=== PATIENT | female | born 1970 | race Caucasian/White ===

== ENCOUNTER 2022-12-01 11:41 | Outpatient (REF) | payer OTHER, SELFPAY ==
[2022-12-01 11:56] LABS: Appearance Urine Clear; Color Urine Dark Yellow; Glucose Urine UA Negative (Negative); Leukocyte Esterase Urine Small (1+) (Negative); Nitrite Urine Positive (Negative); PH 6.5 (5.0-9.0); UMIC TRIGGER UACC YES; Urine Blood Negative (Negative); Urine Ketones Negative (Negative); Urine Protein Negative (Neg-Trace)
[2022-12-01 12:10] LABS: Bacteria Urine None Seen (None Seen); Hyaline Casts Urine 0-2 /LPF (0-2); RBC Urine 0-2 /HPF (0-2); Squamous Epithelial Cell Urine 0-2 /HPF (0-2); UACC Culture Trigger YES; WBC Urine 0-5 /HPF (0-5)
== END 2022-12-01 11:42 | disposition home or self-care (01) ==
LOC: HO.LNP 11:41
PROVIDERS: Visit Provider Nurse Practitioner Family
DX: R30.0 Dysuria (principal)
CPT/HCPCS: 81001; 87086

== ENCOUNTER 2023-06-04 15:53 | Outpatient (AMB) | payer OTHER, SELFPAY ==
--- NOTE | 2023-06-04 16:50 | MHC.OFFWIV ---
Intake Vital Signs 06/04/23 16:53 Height 5 ft 8 in Weight 207 lb BMI 31.5 BP 132/90 H Blood Pressure Location Lt brachial Position Sitting Pulse 62 Pulse Source Pulse Oximeter Temp 98.4 F Temp Source Oral Pulse Oximetry (%) 99 Oxygen Delivery Method Room Air Intake Visit Reasons: EP Sore Throat [phone] Intake Note: pt says she has had a sore throat since SAT with no other sx and she says she feels hot Allergies No Known Allergies Allergy (Unverified 06/04/23 17:02) Medication List - Last Reconciled 06/04/23 by Aman Ling MD azithromycin take 500 mg today (day 1), then 250 mg for 4 days (days 2-5) PO bupropion HCl 300 mg PO DAILY gabapentin mg PO Do you need a note to return to daycare/school/sports/work: No HPI EP Sore Throat [phone] HPI Details Patient presents for a sick visit. Reporting symptoms of sinus congestion, sore throat and difficulty swallowing. Low-grade fever. No family member is sick. No recent travel. Patient reports symptoms of malaise and fatigue. Physical Exam Vital Signs: Last Vital Signs Temp 98.4 F 06/04/23 16:53 Pulse 62 06/04/23 16:53 BP 132/90 H 06/04/23 16:53 Pulse Ox 99 06/04/23 16:53 Oxygen Delivery Method Room Air 06/04/23 16:53 BMI result Body Mass Index 31.5 Const General: cooperative and healthy appearing Nutritional Appearance: well nourished Orientation/consciousness: patient oriented x3 Limitations: no limitations HEENT Head: Yes normal to inspection Eyes General: appearance normal, both eyes and all related structures Neck Neck: Yes normal visual inspection Chest Chest palpation & inspection: normal palpation of entire chest wall Resp Effort & Inspection: normal respiratory effort Neuro General: patient oriented x3 Assessment & Plan Assessment & Plan (1) Upper respiratory tract infection: Code(s): J06.9 - Acute upper respiratory infection, unspecified Plan: Antibiotics ordered. Increase fluid intake. Tylenol for aches and pains. If symptoms worsen, follow-up here for a recheck. Orders: Orders AMB Rapid Strep Screen Today Z13.9 - Encounter for screening, unspecified Medications: New azithromycin take 500 mg today (day 1), then 250 mg for 4 days (days 2-5) PO 6 tabs 0RF Coding Level of Care Code Est Pt Level 3 (31970) Diagnoses Upper respiratory tract infection J06.9
[2023-06-04 16:53] VITALS: BP 132/90; PULSE 62; TEMP 36.9; O2SAT 99; BMI 31.5
== END 2023-06-04 17:15 | disposition home or self-care (01) ==
PROVIDERS: PCP Physician Assistant Medical; Visit Provider Internal Medicine
DX: J06.9 Acute upper respiratory infection, unspecified (principal); Z13.9 Encounter for screening, unspecified
CPT/HCPCS: 87880; 99213

== ENCOUNTER 2023-09-25 08:05 | Outpatient (AMB) | payer OTHER, SELFPAY ==
--- NOTE | 2023-09-25 08:14 | AM.OFFWIN_ITS ---
Intake Vital Signs 09/25/23 08:15 Height 5 ft 8 in Weight 204 lb BMI 31.0 BP 112/72 Blood Pressure Location Rt brachial Position Sitting Pulse 77 Pulse Source Pulse Oximeter Temp 97.9 F Temp Source Temporal Artery Scan Pulse Oximetry (%) 97 Oxygen Delivery Method Room Air Intake Visit Reasons: EP ?UTI Intake Note: pt is here for c/o possible uti Patient Tobacco Use Status: Never used Tobacco Allergies No Known Allergies Allergy (Verified 09/25/23 08:15) Medication List - Last Reconciled 09/25/23 by Ana Shoemaker MD bupropion HCl 300 mg PO DAILY gabapentin mg PO Do you need a note to return to daycare/school/sports/work: Yes HPI EP ?UTI HPI Details Patient is a 53-year-old female came in today to be evaluated for possible bladder infection Patient says that she is having them recurrently, last time was 2 months ago, she is also seeing a urologist and has appointment in 2 weeks Patient has been having dysuria for the past 2 days which is getting worse With slight pelvic pressure No gross blood No back pain, no nausea no vomiting, no fever no chills I am treating her with Levaquin 500 once a day for 5 days Patient says that Macrobid does not work for her. We will send urine for culture. [facility] Social History Patient Tobacco Use Status: Never used Tobacco Review of Systems Const All systems reviewed & are unremarkable except as noted in HPI and below Physical Exam Vital Signs: Last Vital Signs Temp 97.9 F 09/25/23 08:15 Pulse 77 09/25/23 08:15 BP 112/72 09/25/23 08:15 Pulse Ox 97 09/25/23 08:15 Oxygen Delivery Method Room Air 09/25/23 08:15 BMI result Body Mass Index 31.0 Const General: no acute distress Orientation/consciousness: patient oriented x3 Eyes General: appearance normal, both eyes and all related structures Resp Effort & Inspection: normal respiratory effort and able to speak in complete sentences Auscultation: clear to auscultation bilaterally GI Other: Mild suprapubic pressure, no guarding no rebound General: Yes no CVA tenderness Back/Spine/Pelvis Back: no CVA tenderness Neuro General: patient oriented x3 Psych Mental Status: mental status grossly normal Results AMB Urinalysis, Automated UA Leukoctes 500 Jm/uL Last Edit by Dick Aguero CMA on 09/25/23 08:3 1 UA Nitrite Positive Last Edit by Dick Aguero CMA on 09/25/23 08:31 UA Urobilinogen 2 mg/dL Last Edit by Dick Aguero CMA on 09/25/23 08:3 1 UA Protein 30 mg/dL Last Edit by Dick Aguero CMA on 09/25/23 08:31 UA pH 5.5 Last Edit by Dick Aguero CMA on 09/25/23 08:31 UA Blood 200 Jorge/uL Last Edit by Dick Aguero CMA on 09/25/23 08:31 UA Specific [place] 1.030 Last Edit by Dick Aguero CMA on 09/25/23 08:31 UA Ketone Positive Last Edit by Dick Aguero CMA on 09/25/23 08:31 UA Bilirubin 2 mg/dL Last Edit by Dick Aguero CMA on 09/25/23 08:31 UA Glucose 0 mg/dL Last Edit by Dick Aguero CMA on 09/25/23 08:31 Assessment & Plan Assessment & Plan (1) Acute cystitis: Code(s): N30.00 - Acute cystitis without hematuria Qualifiers: Hematuria presence: with hematuria Qualified Code(s): N30.01 - Acute cystitis with hematuria Plan Patient is a 53-year-old female came in today to be evaluated for possible bladder infection Patient says that she is having them recurrently, last time was 2 months ago, she is also seeing a urologist and has appointment in 2 weeks Patient has been having dysuria for the past 2 days which is getting worse With slight pelvic pressure No gross blood No back pain, no nausea no vomiting, no fever no chills I am treating her with Levaquin 500 once a day for 5 days Patient says that Macrobid does not work for her. We will send urine for culture. Orders: Orders AMB Urinalysis Automated Today Z13.9 - Encounter for screening, unspecified Urine Culture Today N30.00 - Acute cystitis without hematuria Medications: New levofloxacin 500 mg PO DAILY 5 days 5 tabs 0RF Coding Level of Care Code Est Pt Level 3 (02179) Diagnoses Acute cystitis with hematuria N30.01 Hematuria presence: with hematuria
[2023-09-25 08:15] VITALS: BP 112/72; PULSE 77; TEMP 36.6; O2SAT 97; BMI 31.0
== END 2023-09-25 09:17 | disposition home or self-care (01) ==
PROVIDERS: PCP Physician Assistant Medical; Visit Provider Internal Medicine
DX: N30.01 Acute cystitis with hematuria (principal)
CPT/HCPCS: 81003; 99213

== ENCOUNTER 2023-09-25 14:22 | Outpatient (REF) | payer OTHER, SELFPAY | END 2023-09-25 14:23 | disposition home or self-care (01) | LOC: HO.LNP 14:22 | PROVIDERS: Visit Provider Internal Medicine | DX: N30.00 Acute cystitis without hematuria (principal) | CPT/HCPCS: 87086 ==

== ENCOUNTER 2024-01-28 12:20 | Outpatient (AMB) | payer OTHER, SELFPAY ==
[2024-01-28 12:33] VITALS: BP 112/72; PULSE 87; TEMP 36.2; O2SAT 98; BMI 28.9
--- NOTE | 2024-01-28 12:33 | MHC.OFFWIV ---
Intake Vital Signs 01/28/24 12:33 Height 5 ft 8 in Weight 190 lb BMI 28.9 BP 112/72 Blood Pressure Location Lt brachial Position Sitting Pulse 87 Pulse Source Pulse Oximeter Temp 97.2 F Temp Source Temporal Artery Scan Pulse Oximetry (%) 98 Oxygen Delivery Method Room Air Intake Visit Reasons: EP UTI Intake Note: pt is here today for UTI started yesterday Patient Tobacco Use Status: Never used Tobacco Allergies No Known Allergies Allergy (Verified 01/28/24 13:19) Medication List - Last Reconciled 01/28/24 by Aman Ling MD bupropion HCl XL 300 mg PO DAILY gabapentin mg PO Do you need a note to return to daycare/school/sports/work: No HPI EP UTI HPI Details Patient presents for a sick visit. Reports symptoms of increased frequency of urination, burning on urination and discomfort in the suprapubic area. Symptoms started in the past few days. No fevers or chills. No nausea or vomiting. PFSH Social History Patient Tobacco Use Status: Never used Tobacco Physical Exam Vital Signs: Last Vital Signs Temp 97.2 F 01/28/24 12:33 Pulse 87 01/28/24 12:33 BP 112/72 01/28/24 12:33 Pulse Ox 98 01/28/24 12:33 Oxygen Delivery Method Room Air 01/28/24 12:33 BMI result Body Mass Index 28.9 Const General: cooperative and healthy appearing Nutritional Appearance: well nourished Orientation/consciousness: patient oriented x3 Limitations: no limitations HEENT Head: Yes normal to inspection Eyes General: appearance normal, both eyes and all related structures Neck Neck: Yes normal visual inspection Chest Chest palpation & inspection: normal palpation of entire chest wall Resp Effort & Inspection: normal respiratory effort General: Yes bladder normal to palpation and Yes no CVA tenderness Bimanual exam- vagina & uterus: bladder normal to palpation Back/Spine/Pelvis Back: no CVA tenderness Neuro General: patient oriented x3 Assessment & Plan Assessment & Plan (1) Acute cystitis: Code(s): N30.00 - Acute cystitis without hematuria Qualifiers: Hematuria presence: with hematuria Qualified Code(s): N30.01 - Acute cystitis with hematuria Plan: Take antibiotics and Pyridium as directed. Increase fluid intake. If symptoms of burning persist, new onset of fever or lower back pain, to follow-up at the clinic. Coding Level of Care Code Est Pt Level 3 (30792) Diagnoses Acute cystitis with hematuria N30.01 Hematuria presence: with hematuria
== END 2024-01-28 13:30 | disposition home or self-care (01) ==
PROVIDERS: PCP Physician Assistant Medical; Visit Provider Internal Medicine
DX: N30.01 Acute cystitis with hematuria (principal)
CPT/HCPCS: 99213